=== PATIENT | female | born 1985 | race Caucasian/White ===

== ENCOUNTER 2025-08-20 15:53 | Inpatient (IN) | payer MEDICAID, OTHER ==
[~2025-08-20] VITALS: Ht 175.3 cm; Wt 77.6 kg
[2025-08-20 16:01] VITALS: O2SAT 99
[2025-08-20] MEDS: ACETAMINOPHEN 325MG TABLET PO ONE (17:22)
[2025-08-20 17:35] LABS: BASOPHILS % 0.3 % (0.0-2.0); EOSINOPHILS % 1.7 % (0.0-5.0); HEMATOCRIT. 33.7 % (36.0-48.0); HEMOGLOBIN. 11.1 g/dL (12.0-16.0); LYMPHOCYTES % 20.6 % (20.0-50.0); MEAN PLATELET VOLUME 8.7 fl (7.4-10.4); MONOCYTES % 4.1 % (2.0-8.0); NEUTROPHILS % 73.3 % (40.0-76.0); PLATELET 293 x1000/uL (130-400); RED BLOOD CELL COUNT 5.17 mill/uL (4.2-5.4); RED CELL DISTRIBUTION WIDTH 19.8 % (11.6-14.6)
[2025-08-20 17:36] LABS: ADD RBC MORPHOLOGY YES
[2025-08-20 17:42] LABS: CREATININE 0.9 mg/dL (0.6-1.0)
[2025-08-20 17:43] LABS: UREA NITROGEN BLOOD 6 mg/dL (9-23)
[2025-08-20 17:44] LABS: HCG SCREEN NEGATIVE
[2025-08-20] MEDS ORDERED: CEFTRIAXONE 1GM/50ML 50 ML IV ONE (18:15)
[2025-08-20 18:44] LABS: BG BASE EXCESS -3.9 mmol/L (-2.0-3.0); BG CARBOXYHEMOGLOBIN 0.4 % (0.5-1.5); BG DEOXYHEMOGLOBIN 2.6 % (0.0-5.0); BG FRACTION INSPIRED OXYGEN 21; BG HCO3 ACT 19.3 mmol/L (21.0-28.0); BG METHEMOGLOBIN 0.3 % (0.5-1.5); BG OXYGEN SATURATION 97.4 % (94.0-98.0); BG OXYHEMOGLOBIN 96.7 % (94.0-98.0); BG PCO2 29.3 mmHg (32.0-45.0); BG PH 7.436 (7.350-7.450); BG PO2 91.0 mmHg (83.0-108.0); BG SAMPLE SITE RIGHT RADIAL; BG TOTAL HEMOGLOBIN 11.9 g/dL (12.0-16.0); BG VENT MODE ROOM AIR
[2025-08-20] MEDS: CEFTRIAXONE 1GM/50ML 50 ML IV NR (20:16)
[2025-08-20] MEDS: SODIUM CHLORIDE 0.9% (SEPSIS BOLUS) IV ONE (20:17)
[2025-08-20 20:31] LABS: PLATELET ESTIMATE NORMAL
[2025-08-20 20:37] LABS: INR 1.0; PROTEIN TOTAL 8.1 g/dL (6.0-8.3)
[2025-08-20 20:38] LABS: ASPARTATE AMINOTRANSFERASE 52 IU/L (<34)
[2025-08-20 20:39] LABS: BILIRUBIN DIRECT 0.2 mg/dL (<=3.0); BILIRUBIN TOTAL 0.4 mg/dL (0.1-1.0)
[2025-08-20 21:35] LABS: CREATININE 0.8 mg/dL (0.6-1.0); UREA NITROGEN BLOOD 10 mg/dL (9-23)
[2025-08-20] MEDS: ACETAMINOPHEN 325MG TABLET PO NR (22:06)
[2025-08-20] MEDS ORDERED: IPRATROPIUM/ALBUTEROL 0.5-3(2.5)MG/3ML NEB HHN PRN (23:30)
[2025-08-20] MEDS ORDERED: GUAIFENESIN 200MG/10ML SUGAR FREE UDC PO PRN (23:30)
[2025-08-20] MEDS ORDERED: ACETAMINOPHEN 325MG TABLET PO PRN ×2 (23:30)
[2025-08-20] MEDS ORDERED: ONDANSETRON HCL 4MG/2ML INJ IV PRN (23:30)
[2025-08-20] MEDS ORDERED: CLONIDINE 0.1MG TABLET PO PRN (23:30)
[2025-08-20] MEDS ORDERED: DEXTROSE 50% WATER 50ML SYRINGE IV PRN (23:30)
[2025-08-20] MEDS ORDERED: DOCUSATE SODIUM 100MG CAPSULE PO PRN (23:30)
[2025-08-20 23:50] LABS: PHOSPHORUS 2.1 mg/dL (2.5-4.9)
[2025-08-21] VITALS: BP 142/86; PULSE 95; RESP 18; TEMP 36.4; O2SAT 99
[2025-08-21] MEDS ORDERED: LEVO300T6 PO (00:38)
[2025-08-21] MEDS: SODIUM CHLORIDE 0.9% 1,000 ML IV SCH (00:55)
[2025-08-21] MEDS: PANTOPRAZOLE 40MG DR TABLET PO SCH (00:56)
[2025-08-21] MEDS: INSULIN GLARGINE 100 UNITS/ML SUBCUT SCH (01:03)
[2025-08-21] MEDS: MAGNESIUM 4 G PREMIX 100 ML IV NR (01:14)
[2025-08-21] MEDS ORDERED: KETOROLAC 30MG/ML VIAL IV PRN (01:15)
[2025-08-21] MEDS: CEFAZOLIN 1000MG PREMIX 50 ML IV SCH (01:52)
[2025-08-21] MEDS: SODIUM PHOSPHATE 30 MMOL in DEXT 5% WATER 490 ML IV NR (01:52)
[2025-08-21 01:55] VITALS: BP 142/86; PULSE 95; RESP 16; TEMP 36.8072
[2025-08-21] MEDS ORDERED: CEFAZOLIN 1000MG PREMIX 50 ML IV SCH (03:00)
[2025-08-21 04:00] VITALS: BP 123/74; PULSE 89; RESP 18; TEMP 36.6; O2SAT 99
[2025-08-21] MEDS ORDERED: IOHEXOL-300 100 ML BOTTLE ONE (04:23)
[2025-08-21] MEDS: BLOOD SUGAR DIAGNOSTIC STRIP TEST SCH (06:06)
[2025-08-21 06:34] LABS: BASOPHILS % 0.3 % (0.0-2.0); EOSINOPHILS % 1.8 % (0.0-5.0); HEMATOCRIT. 29.0 % (36.0-48.0); HEMOGLOBIN. 9.1 g/dL (12.0-16.0); LYMPHOCYTES % 26.2 % (20.0-50.0); MEAN PLATELET VOLUME 8.8 fl (7.4-10.4); MONOCYTES % 5.3 % (2.0-8.0); NEUTROPHILS % 66.4 % (40.0-76.0); PLATELET 228 x1000/uL (130-400); RED BLOOD CELL COUNT 4.47 mill/uL (4.2-5.4); RED CELL DISTRIBUTION WIDTH 20.1 % (11.6-14.6)
[2025-08-21 06:50] LABS: CREATININE 0.6 mg/dL (0.6-1.0)
[2025-08-21] MEDS: INSULIN LISPRO 100 UNITS/ML SUBCUT SCH ×2 (06:50→06:51)
[2025-08-21 06:51] LABS: PROTEIN TOTAL 6.6 g/dL (6.0-8.3); TRIGLYCERIDE > 1000 mg/dL (0-150); UREA NITROGEN BLOOD < 5 mg/dL (9-23)
[2025-08-21 06:52] LABS: ASPARTATE AMINOTRANSFERASE 26 IU/L (<34); LDL CHOLESTEROL 38 mg/dL (5-100)
[2025-08-21 06:53] LABS: BILIRUBIN DIRECT 0.1 mg/dL (<=3.0); BILIRUBIN TOTAL 0.3 mg/dL (0.1-1.0); T4 FREE 1.66 ng/dL (0.89-1.76)
[2025-08-21] MEDS: LEVOTHYROXINE SODIUM 200MCG TABLET PO SCH (06:58)
[2025-08-21] MEDS: FERROUS SULFATE 325MG TABLET PO SCH (06:58)
[2025-08-21 07:50] LABS: TROPONIN I HIGH SENSITIVITY < 4 ng/L (3.0-34)
[2025-08-21 08:00] VITALS: BP 146/88; PULSE 96; RESP 17; TEMP 36.5; O2SAT 99
[2025-08-21] MEDS: AMLODIPINE 5MG TABLET PO SCH (08:52)
[2025-08-21] MEDS: ENOXAPARIN 40MG/0.4ML SYR SUBCUT SCH (08:54)
[2025-08-21 09:10] LABS: CLARITY URINE CLEAR (CLEAR); COLOR URINE YELLOW (YELLOW); GLUCOSE URINE 3+ (NEGATIVE); KETONES URINE NEGATIVE (NEGATIVE); LEUKOCYTE ESTERASE URINE NEGATIVE (NEGATIVE); NITRITE URINE NEGATIVE (NEGATIVE); OCCULT BLOOD URINE TRACE (NEGATIVE); PH URINE 5.0 (4.5-8.0); PROTEIN URINE NEGATIVE (NEGATIVE); SPECIFIC GRAVITY URINE 1.069 (1.005-1.030); UROBILINOGEN URINE 0.2 E.U./dL (0.2-1.0)
[2025-08-21 09:24] VITALS: BP 146/86; PULSE 96; RESP 18; TEMP 97.7
[2025-08-21 09:38] LABS: *AMPHETAMINES SCREEN URINE NEGATIVE (NEGATIVE); *BARBITURATES SCREEN URINE NEGATIVE (NEGATIVE); *BENZODIAZEPINES SCREEN URINE NEGATIVE (NEGATIVE); *COCAINE SCREEN URINE NEGATIVE (NEGATIVE)
[2025-08-21 09:39] LABS: CANNABINOID URINE SCREEN NEGATIVE (NEGATIVE); ECSTASY MDMA SCREEN URINE NEGATIVE (NEGATIVE); METHADONE URINE SCREEN NEGATIVE (NEGATIVE); OPIATES URINE SCREEN NEGATIVE (NEGATIVE); PHENCYCLIDINE URINE SCREEN NEGATIVE (NEGATIVE)
[2025-08-21 09:49] LABS: RBC URINE 0-2 /hpf (0-2); SQUAMOUS EPITHELIAL CELL URINE 2+ /lpf (RARE/1+); WBC URINE 0-2 /hpf (0-2)
[2025-08-21 09:50] LABS: BACTERIA URINE TRACE
[2025-08-21] MEDS ORDERED: AMOX1TAB16 MT (10:45)
[2025-08-21] MEDS ORDERED: ATOR20TA PO (10:45)
[2025-08-21] MEDS ORDERED: AMLO5TAB88 PO (10:45)
[2025-08-21] MEDS ORDERED: FERR-63 PO (10:45)
[2025-08-21] MEDS ORDERED: METF-1150 MT (10:47)
[2025-08-21] MEDS ORDERED: ATORVASTATIN CALCIUM 20MG TABLET PO SCH (21:00)
== END 2025-08-21 10:50 | disposition home or self-care (01) | DRG 872 ==
LOC: ER 15:53 → 8WST 22:35 → EDBEDREQTM 22:47 → EDBEDREQSVC 22:47 → EDBEDREQ 22:47 → ENRESERV 22:58
PROVIDERS: ADMIT Internal Medicine; ATTEND Internal Medicine
DX: A41.9 Sepsis, unspecified organism (principal); E87.20 Acidosis, unspecified; E83.39 Other disorders of phosphorus metabolism; D84.9 Immunodeficiency, unspecified; E11.65 Type 2 diabetes mellitus with hyperglycemia; D50.9 Iron deficiency anemia, unspecified; L03.211 Cellulitis of face; E66.9 Obesity, unspecified; E03.9 Hypothyroidism, unspecified; I10 Essential (primary) hypertension; Z68.1 Body mass index [BMI] 19.9 or less, adult; K05.6 Periodontal disease, unspecified; R59.1 Generalized enlarged lymph nodes; E83.42 Hypomagnesemia; Z79.4 Long term (current) use of insulin; Z79.899 Other long term (current) drug therapy
CPT/HCPCS: 36415; 36600; 70487; 71045; 76536; 80048; 80061; 80076; 80305; 80320; 81003; 82010; 82375; 82550; 82728; 82805; 83036; 83520; 83540; 83550; 83605; 83735; 84100; 84145; 84439; 84443; 84484; 84703; 85025; 86038; 86376; 86850; 86900; 93005; 96365; 99291; 99292; J0690; J0696; J1650; J1815; J3475; J3490; J7030; J7060; Q9967; G0480